=== PATIENT | male | born 1970 | race Caucasian/White ===

== ENCOUNTER 2022-03-08 07:01 | Day surgery (SDC) | payer MEDICAID ==
[2022-03-07 15:55] VITALS: BMI 19.7
[2022-03-08] MEDS ORDERED: PROPOFOL 200 MG/20 ML VIAL ONE (09:28)
== END 2022-03-08 11:13 | disposition short-term general hospital (02) ==
LOC: SDC 07:01
PROVIDERS: ATTEND Internal Medicine Gastroenterology
PROC: 0DJD8ZZ Inspection of Lower Intestinal Tract, Via Natural or Artificial Opening Endoscopic (ICD-10-PCS; principal; 2022-03-08)
DX: Z12.11 Encounter for screening for malignant neoplasm of colon (principal); K21.9 Gastro-esophageal reflux disease without esophagitis; G40.909 Epilepsy, unspecified, not intractable, without status epilepticus; Z79.899 Other long term (current) drug therapy; Z88.0 Allergy status to penicillin; Z88.1 Allergy status to other antibiotic agents; Z88.2 Allergy status to sulfonamides; Z88.8 Allergy status to other drugs, medicaments and biological substances; Z91.041 Radiographic dye allergy status
CPT/HCPCS: J2704